=== PATIENT | male | born 1965 | race Caucasian/White ===

== ENCOUNTER 2024-03-23 11:36 | Outpatient (CLI) | payer SELFPAY ==
--- NOTE | ~2024-03-23 | XR_ITS ---
Cervical Spine: AP, lateral, open-mouth views Clinical History: Pain Findings: The normal lordotic curve is maintained. The vertebral bodies and posterior elements appea r intact. The intervertebral disc spaces are well maintained. Moderate facet joint degenerative owens ges are present. Pre-vertebral soft tissues are unremarkable. Impression: Moderate facet arthropathy throughout the cervical spine. Reviewed, dictated and finalized at [facility]. Impression: Moderate facet arthropathy throughout the cervical spine.
--- NOTE | ~2024-03-23 | XR_ITS ---
Left Shoulder Technique: AP and axillary views were obtained. Clinical History: Pain Findings: No fracture or dislocation is seen. Osseous alignment is anatomic. The glenohumeral and acr omioclavicular joint spaces are preserved. Soft tissues are unremarkable. Impression: Unremarkable left shoulder radiographs. Reviewed, dictated and finalized at [facility]. Impression: Unremarkable left shoulder radiographs.
== END 2024-03-23 11:37 ==
PROVIDERS: PCP Physician Assistant; Visit Provider Physician Assistant
DX: M54.2 Cervicalgia (principal); M25.512 Pain in left shoulder
CPT/HCPCS: 72040; 73030